=== PATIENT | female | born 1985 | race African-American/Black ===

== ENCOUNTER 2023-06-22 11:42 | Inpatient (IN) | payer OTHER ==
[2023-06-22 12:32] VITALS: BMI 22.4
[2023-06-22] MEDS ORDERED: ONDANSETRON *ODT* 4 MG TABLET SL PRN (12:51)
[2023-06-22] MEDS ORDERED: DICYCLOMINE HCL 10 MG CAPSULE PO PRN (12:51)
[2023-06-22] MEDS ORDERED: POLYETHYLENE GLYCOL (HEALTHYLAX) 3350 17 GM PACKET PO PRN (12:51)
[2023-06-22] MEDS ORDERED: BENZONATATE 200 MG CAPSULE PO PRN (12:51)
[2023-06-22] MEDS ORDERED: guaiFENesin 600 MG TABLET.ER (FP) PO PRN (12:51)
[2023-06-22] MEDS ORDERED: BENZOCAINE/MENTHOL (CHLORASEPTIC ) LOZENGE MM PRN (12:51)
[2023-06-22] MEDS ORDERED: ACETAMINOPHEN 325 MG TABLET (FP) PO PRN (12:51)
[2023-06-22] MEDS ORDERED: NALOXONE HCL 0.4 MG/ML VIAL IM PRN (12:51)
[2023-06-22] MEDS ORDERED: NALOXONE HCL (KLOXXADO) 8 MG SPRAY NS PRN (12:51)
[2023-06-22] MEDS ORDERED: LOPERAMIDE HCL 2 MG CAPSULE PO PRN (12:51)
[2023-06-22] MEDS ORDERED: MAGNESIUM HYDROX 2400MG/30ML ORAL SUSPENSION 30 ML CUP PO PRN (12:51)
[2023-06-22] MEDS ORDERED: chlordiazePOXIDE HCL 25 MG CAPSULE PO PRN (12:51)
[2023-06-22] MEDS ORDERED: hydrOXYzine PAMOATE 25 MG CAPSULE (FP) PO PRN (12:51)
[2023-06-22] MEDS ORDERED: TRIMETHOBENZAMIDE HCL 200MG/2ML INJ IM ONE ×2 (13:08→13:30)
[2023-06-22] MEDS ORDERED: chlordiazePOXIDE HCL 25 MG CAPSULE ONE (13:32)
[2023-06-22] MEDS: chlordiazePOXIDE HCL 25 MG CAPSULE PO SCH ×2 (17:57→22:18)
[2023-06-22] MEDS: METHOCARBAMOL 500 MG TABLET PO PRN (17:57)
[2023-06-22] MEDS ORDERED: MELATONIN 5 MG TABLETS PO SCH (22:00)
[2023-06-22] MEDS: THIAMINE HCL 100 MG TABLET (FP) PO SCH (22:17)
[2023-06-23] MEDS: chlordiazePOXIDE HCL 25 MG CAPSULE PO SCH ×5 (05:26→22:58)
[2023-06-23] MEDS: MAG HYDROX/AL HYDROX/SIMETH 30 ML UNIT-DOSE CUP PO PRN (05:30)
[2023-06-23] MEDS: PRENATAL VITAMINS W/ FOLIC ACID TABLET (FP) PO SCH (10:14)
[2023-06-23 11:41] LABS: CHLORIDE 99 mmol/L (98-107); HEMATOCRIT 21.8 % (32.4-45.2); HEMOGLOBIN 7.3 GM/dL (10.7-15.3); MCH 35.6 pg (25.7-33.7); MCHC 33.3 g/dl (32.0-36.0); MEAN CELL VOLUME 106.7 fl (80-96); MEAN PLT VOLUME 8.6 fl (7.5-11.1); PLATELET COUNT 98 10^3/uL (134-434); POTASSIUM 3.4 mmol/L (3.5-5.1); RBC 2.04 M/mm3 (3.60-5.2); RDW 17.7 % (11.6-15.6); SODIUM 132 mmol/L (136-145); WHITE BLOOD COUNT 3.9 K/mm3 (4.0-10.0)
[2023-06-23 11:45] LABS: CALCIUM 7.6 mg/dL (8.5-10.1)
[2023-06-23 11:46] LABS: ANION GAP 4 mmol/L (4-13); BLOOD UREA NITROGEN 8.5 mg/dL (7-18); CO2 29 mmol/L (21-32); GLUCOSE,RANDOM 102 mg/dL (74-106)
[2023-06-23 11:49] LABS: SGOT/AST 439 U/L (15-37); SGPT/ALT 69 U/L (13-61)
[2023-06-23 11:51] LABS: ALK PHOS 165 U/L (45-117); BILIRUBIN,TOTAL 2.8 mg/dL (0.2-1); TOT PROT 6.6 g/dl (6.4-8.2)
[2023-06-23 12:44] LABS: HIV INTERPRETATION NEGATIVE (NEGATIVE)
[2023-06-23] MEDS ORDERED: ACETAMINOPHEN 325 MG TABLET (FP) PO PRN (12:51)
[2023-06-23] MEDS ORDERED: POTASSIUM CHLORIDE ORAL LIQUID 20 MEQ/15 ML PO ONE (15:43)
[2023-06-23] MEDS ORDERED: TRIMETHOBENZAMIDE HCL 200MG/2ML INJ IM PRN (18:24)
[2023-06-23] MEDS: MELATONIN 5 MG TABLETS PO SCH ×2 (22:56→22:58)
[2023-06-23] MEDS: THIAMINE HCL 100 MG TABLET (FP) PO SCH ×2 (22:56→22:58)
[2023-06-24] MEDS: chlordiazePOXIDE HCL 25 MG CAPSULE PO SCH ×4 (05:45→22:36)
[2023-06-24] MEDS: CEPHALEXIN MONOHYDRATE 500 MG CAPSULE (UD) PO SCH ×3 (06:39→22:36)
[2023-06-24] MEDS: PRENATAL VITAMINS W/ FOLIC ACID TABLET (FP) PO SCH (10:51)
[2023-06-24 10:53] LABS: HEMATOCRIT 22.1 % (32.4-45.2); HEMOGLOBIN 7.4 GM/dL (10.7-15.3); MCH 35.9 pg (25.7-33.7); MCHC 33.6 g/dl (32.0-36.0); MEAN CELL VOLUME 106.9 fl (80-96); MEAN PLT VOLUME 8.5 fl (7.5-11.1); PLATELET COUNT 111 10^3/uL (134-434); RBC 2.07 M/mm3 (3.60-5.2); RDW 17.5 % (11.6-15.6); WHITE BLOOD COUNT 3.6 K/mm3 (4.0-10.0)
[2023-06-24 11:05] LABS: POTASSIUM 3.2 mmol/L (3.5-5.1)
[2023-06-24 11:11] LABS: ALBUMIN 1.8 g/dl (3.4-5.0); BLOOD UREA NITROGEN 5.6 mg/dL (7-18); CALCIUM 7.4 mg/dL (8.5-10.1)
[2023-06-24 11:14] LABS: CREATININE 0.8 mg/dL (0.55-1.3)
[2023-06-24 11:16] LABS: BILIRUBIN,TOTAL 2.1 mg/dL (0.2-1); TOT PROT 6.1 g/dl (6.4-8.2)
[2023-06-24] MEDS ORDERED: POTASSIUM CHLORIDE ORAL LIQUID 20 MEQ/15 ML PO ONE (14:30)
[2023-06-24] MEDS: THIAMINE HCL 100 MG TABLET (FP) PO SCH (22:35)
[2023-06-24] MEDS: MELATONIN 5 MG TABLETS PO SCH (22:35)
[2023-06-25] MEDS ORDERED: chlordiazePOXIDE HCL 10 MG CAPSULE PO PRN
[2023-06-25] MEDS: chlordiazePOXIDE HCL 10 MG CAPSULE PO SCH ×4 (05:30→23:15)
[2023-06-25] MEDS: CEPHALEXIN MONOHYDRATE 500 MG CAPSULE (UD) PO SCH ×3 (06:37→22:54)
[2023-06-25 10:31] LABS: BASO % 0.5 % (0-2.0); EOS % 0.5 % (0-4.5); HEMATOCRIT 23.3 % (32.4-45.2); HEMOGLOBIN 7.9 GM/dL (10.7-15.3); LYMPH % 36.1 % (8-40); MCH 36.3 pg (25.7-33.7); MCHC 33.8 g/dl (32.0-36.0); MEAN CELL VOLUME 107.3 fl (80-96); MEAN PLT VOLUME 9.7 fl (7.5-11.1); MONO % 12.7 % (3.8-10.2); NEUT % 50.2 % (42.8-82.8); PLATELET COUNT 130 10^3/uL (134-434); RBC 2.17 M/mm3 (3.60-5.2); RDW 17.7 % (11.6-15.6); WHITE BLOOD COUNT 3.9 K/mm3 (4.0-10.0)
[2023-06-25] MEDS: PRENATAL VITAMINS W/ FOLIC ACID TABLET (FP) PO SCH (10:32)
[2023-06-25 10:59] LABS: POTASSIUM 4.5 mmol/L (3.5-5.1)
[2023-06-25 11:03] LABS: CALCIUM 7.6 mg/dL (8.5-10.1)
[2023-06-25 11:04] LABS: ALBUMIN 1.9 g/dl (3.4-5.0); BLOOD UREA NITROGEN 3.4 mg/dL (7-18)
[2023-06-25 11:07] LABS: CREATININE 0.7 mg/dL (0.55-1.3)
[2023-06-25 11:09] LABS: BILIRUBIN,TOTAL 2.6 mg/dL (0.2-1); TOT PROT 6.6 g/dl (6.4-8.2)
[2023-06-25] MEDS: MAG HYDROX/AL HYDROX/SIMETH 30 ML UNIT-DOSE CUP PO PRN (17:54)
[2023-06-25] MEDS: MELATONIN 5 MG TABLETS PO SCH (22:54)
[2023-06-25] MEDS: FERROUS SO4 325 MG TABLET (FP) PO SCH (22:54)
[2023-06-25] MEDS: THIAMINE HCL 100 MG TABLET (FP) PO SCH (22:54)
[2023-06-26] MEDS: chlordiazePOXIDE HCL 10 MG CAPSULE PO SCH ×2 (05:55→17:42)
[2023-06-26] MEDS: CEPHALEXIN MONOHYDRATE 500 MG CAPSULE (UD) PO SCH ×3 (06:20→23:04)
[2023-06-26] MEDS: FERROUS SO4 325 MG TABLET (FP) PO SCH ×2 (10:45→23:04)
[2023-06-26] MEDS: PRENATAL VITAMINS W/ FOLIC ACID TABLET (FP) PO SCH (10:45)
[2023-06-26] MEDS: THIAMINE HCL 100 MG TABLET (FP) PO SCH (23:04)
[2023-06-26] MEDS: METHOCARBAMOL 500 MG TABLET PO PRN (23:04)
[2023-06-26] MEDS: MELATONIN 5 MG TABLETS PO SCH (23:05)
[2023-06-27] MEDS ORDERED: chlordiazePOXIDE HCL 10 MG CAPSULE PO ONE (05:00)
[2023-06-27] MEDS: CEPHALEXIN MONOHYDRATE 500 MG CAPSULE (UD) PO SCH (05:48)
[2023-06-27] MEDS: FERROUS SO4 325 MG TABLET (FP) PO SCH (09:04)
[2023-06-27] MEDS: PRENATAL VITAMINS W/ FOLIC ACID TABLET (FP) PO SCH (09:07)
[2023-06-27 09:16] VITALS: BP 99/66; PULSE 85; RESP 18; TEMP 98.6
== END 2023-06-27 11:30 | disposition home or self-care (01) | DRG 775 ==
LOC: YASAS 11:42 → Y3N 13:34 → Y6N 15:28
PROVIDERS: ADMIT Allergy & Immunology; ATTEND Surgery
PROC: HZ2ZZZZ Detoxification Services for Substance Abuse Treatment (ICD-10-PCS; principal; 2023-06-22)
DX: F10.230 Alcohol dependence with withdrawal, uncomplicated (principal); F10.282 Alcohol dependence with alcohol-induced sleep disorder; U07.1 COVID-19; D64.9 Anemia, unspecified; E87.6 Hypokalemia; N39.0 Urinary tract infection, site not specified; M54.50 Low back pain, unspecified; G89.29 Other chronic pain; R74.01 Elevation of levels of liver transaminase levels; Z28.310 Unvaccinated for COVID-19; Z88.8 Allergy status to other drugs, medicaments and biological substances
CPT/HCPCS: 36415; 80053; 80307; 81025; 84132; 85025; 85027; 86780; 87389; 87635; 93005; 93010; Q0162

== ENCOUNTER 2023-06-23 21:43 | Emergency (ER) | payer OTHER ==
[2023-06-23 22:15] VITALS: PULSE 100; RESP 18; TEMP 98.1; BMI 22.4
[2023-06-23] MEDS ORDERED: LACTATED RINGERS SOLUTION 1000 ML INFUS.BAG IV ONE (22:24)
[2023-06-23] MEDS ORDERED: ACETAMINOPHEN 1000 MG/100 ML BAG IVPB ONE (22:24)
[2023-06-23] MEDS ORDERED: METOCLOPRAMIDE HCL INJECTION 10 MG/2 ML VIAL IVPUSH ONE (22:24)
[2023-06-23] MEDS ORDERED: METOCLOPRAMIDE HCL INJECTION 10 MG/2 ML VIAL ONE (22:40)
[2023-06-23] MEDS ORDERED: ACETAMINOPHEN INJECTION 100 ML IVPB ONE (22:40)
[2023-06-24 00:15] LABS: BASO % 0.3 % (0-2.0); EOS % 0.3 % (0-4.5); HEMATOCRIT 24.6 % (32.4-45.2); HEMOGLOBIN 8.4 GM/dL (10.7-15.3); LYMPH % 31.2 % (8-40); MCH 36.2 pg (25.7-33.7); MEAN CELL VOLUME 106.5 fl (80-96); MEAN PLT VOLUME 8.4 fl (7.5-11.1); MONO % 12.2 % (3.8-10.2); PLATELET COUNT 125 10^3/uL (134-434); RBC 2.31 M/mm3 (3.60-5.2); RDW 17.9 % (11.6-15.6); WHITE BLOOD COUNT 4.2 K/mm3 (4.0-10.0)
[2023-06-24 00:32] LABS: INR 1.58 (0.83-1.09); PROTHROMBIN TIME (PATIENT) 18.3 SEC (9.7-13.0)
[2023-06-24 00:33] LABS: POTASSIUM 3.7 mmol/L (3.5-5.1)
[2023-06-24 00:35] LABS: ACTIVATED PTT 32.8 SECONDS (25.2-36.5)
[2023-06-24 00:35] LABS: CALCIUM 7.6 mg/dL (8.5-10.1)
[2023-06-24 00:36] LABS: ALBUMIN 2.2 g/dl (3.4-5.0); BLOOD UREA NITROGEN 6.7 mg/dL (7-18)
[2023-06-24 00:39] LABS: CREATININE 0.9 mg/dL (0.55-1.3)
[2023-06-24 00:41] LABS: BILIRUBIN,TOTAL 2.6 mg/dL (0.2-1); TOT PROT 7.4 g/dl (6.4-8.2)
[2023-06-24] MEDS ORDERED: LACTATED RINGERS SOLUTION 1000 ML INFUS.BAG IV ONE (01:32)
[2023-06-24 02:32] LABS: ANISOCYTOSIS 1+; MACROCYTOSIS 1+; TARGET CELLS 1+
[2023-06-24 02:42] LABS: EPI CELLS 9 /uL (0-25.1); HYALINE CASTS 0 /uL (0-3.1); PH,URINE 8.5 (5.0-8.0); URINE APPEARANCE CLEAR; URINE BACTERIA 7041 /uL (0-1359); URINE BILIRUBIN 1+ (NEGATIVE); URINE COLOR DK YELLOW; URINE GLUCOSE (UA) NEGATIVE (NEGATIVE); URINE KETONE NEGATIVE (NEGATIVE); URINE LEUK ESTERASE TRACE (NEGATIVE); URINE NITRITE NEGATIVE (NEGATIVE); URINE PROTEIN NEGATIVE (NEGATIVE); URINE RBC 9 /uL (0-23.9); URINE WBC 23 /uL (0-25.8)
[2023-06-24] MEDS ORDERED: CEFTRIAXONE 1,000 MG in DEXTROSE 5%-WATER - 50 ML IVPB ONE (03:15)
[2023-06-24] MEDS ORDERED: SODIUM CHLORIDE 0.9% 500 ML INFUS.BAG IV ONE (03:15)
[2023-06-24] MEDS ORDERED: CEFTRIAXONE 1 GM/50 ML BAG ONE (03:17)
[2023-06-24 04:44] VITALS: BP 95/70
== END 2023-06-24 05:17 | disposition home or self-care (01) ==
LOC: JER 21:43
PROC: 3E03329 Introduction of Other Anti-infective into Peripheral Vein, Percutaneous Approach (ICD-10-PCS; principal; 2023-06-24)
PROC: 3E033NZ Introduction of Analgesics, Hypnotics, Sedatives into Peripheral Vein, Percutaneous Approach (ICD-10-PCS; 2023-06-24)
PROC: 3E033GC Introduction of Other Therapeutic Substance into Peripheral Vein, Percutaneous Approach (ICD-10-PCS; 2023-06-24)
DX: I95.9 Hypotension, unspecified (principal); R10.13 Epigastric pain; R11.10 Vomiting, unspecified; N39.0 Urinary tract infection, site not specified; R10.30 Lower abdominal pain, unspecified; R68.2 Dry mouth, unspecified
CPT/HCPCS: 36415; 80053; 81003; 84484; 85025; 85610; 85730; 87086; 87186; 93005; 93010; 99284-25